=== PATIENT | female | born 1950 | race Caucasian/White ===

== ENCOUNTER 2020-01-30 09:24 | Outpatient (CLI) | payer MEDICARE, OTHER, SELFPAY ==
--- NOTE | ~2020-01-30 | MM_ITS ---
EXAMINATION: MM screening eulogio BI w gricelda HISTORY: Screening mammogram TECHNIQUE: Craniocaudal and mediolateral oblique 3-D tomosynthesis images were obtained and synthetic 2-D images were generated. CAD analysis was submitted and interpreted. COMPARISON: 12/22/2018, 12/03/2017, 11/27/2016 bilateral digital screening mammogram examinations BREAST PARENCHYMAL COMPOSITION: The breasts are almost entirely fatty. FINDINGS: There is no evidence of suspicious mass, calcification, or architectural distortion to sugg est malignancy in either breast. There has been no suspicious interval change. IMPRESSION: 1. No mammographic evidence of malignancy. 2. Recommend routine screening mammography in one year. BI-RADS Category 1: Negative Reviewed, dictated and finalized at location A.
== END 2020-01-30 09:25 | disposition home or self-care (01) ==
PROVIDERS: PCP Family Medicine; Visit Provider Family Medicine
DX: Z12.31 Encounter for screening mammogram for malignant neoplasm of breast (principal)
CPT/HCPCS: 77063; 77067

== ENCOUNTER 2021-02-05 11:43 | Outpatient (CLI) | payer MEDICARE, OTHER, SELFPAY ==
--- NOTE | ~2021-02-05 | MM_ITS ---
EXAMINATION: MM screening eulogio BI w gricelda HISTORY: Screening TECHNIQUE: Craniocaudal and mediolateral oblique 3-D tomosynthesis images were obtained and synthetic 2-D images were generated. CAD analysis was submitted and interpreted. COMPARISON: No prior mammogram is available for comparison at this institution. BREAST PARENCHYMAL COMPOSITION: The breasts are almost entirely fatty. FINDINGS: There is no evidence of suspicious mass, calcification, or architectural distortion to sugg est malignancy in either breast. There has been no suspicious interval change. IMPRESSION: 1. No mammographic evidence of malignancy. 2. Recommend routine screening mammography in one year. BI-RADS Category 1: Negative Reviewed, dictated and finalized at location A.
== END 2021-02-05 11:44 | disposition home or self-care (01) ==
LOC: ANHIMG 11:46
PROVIDERS: PCP Family Medicine; Visit Provider Family Medicine
DX: Z12.31 Encounter for screening mammogram for malignant neoplasm of breast (principal)
CPT/HCPCS: 77063; 77067

== ENCOUNTER 2021-04-25 08:32 | Outpatient (CLI) | payer MEDICARE, OTHER, SELFPAY ==
--- NOTE | ~2021-04-25 | CT_ITS ---
EXAMINATION: CT lumbar spine wo con DATE: 04/25/2021 08:55 INDICATION: Low back pain. TECHNIQUE: Computed tomography (CT) of the lumbar spine was performed without intravenous contrast. A utomated exposure control and iterative reconstruction technique were employed. The dose-length produ ct was 1010.45 mGy-cm. COMPARISON: None FINDINGS: There is 3 mm anterolisthesis of L4 on L5. Vertebral body heights are normal. There is mild ly decreased disc height from L2-L3 through L4-L5. The following disc levels are specifically discuss ed: L1-L2: The disc is bulging. There is moderate bilateral facet joint osteoarthritis. There is mild desirae ateral neural foraminal stenosis. There is no central canal stenosis. L2-L3: The disc is bulging. There is severe bilateral facet joint osteoarthritis. There is mild bilat eral neural foraminal stenosis. There is mild central canal stenosis. L3-L4: The disc is bulging. There is severe bilateral facet joint osteoarthritis. There is mild right and moderate left neural foraminal stenosis. There is mild central canal stenosis. L4-L5: The disc is bulging. There is severe bilateral facet joint osteoarthritis. There is moderate b ilateral neural foraminal stenosis. There is mild central canal stenosis. L5-S1: The disc is bulging. There is severe bilateral facet joint osteoarthritis. There is mild bilat eral neural foraminal stenosis. There is mild central canal stenosis. IMPRESSION: 1. Moderate lumbar spondylosis. Reviewed, dictated and finalized at location A.
== END 2021-04-25 08:33 | disposition home or self-care (01) ==
PROVIDERS: PCP Family Medicine; Visit Provider Family Medicine
DX: M51.34 Other intervertebral disc degeneration, thoracic region (principal); M47.817 Spondylosis without myelopathy or radiculopathy, lumbosacral region; M48.07 Spinal stenosis, lumbosacral region; M89.9 Disorder of bone, unspecified
CPT/HCPCS: 72131

== ENCOUNTER 2022-04-16 09:13 | Outpatient (CLI) | payer MEDICARE, SELFPAY ==
--- NOTE | ~2022-04-16 | DEXA_ITS ---
Bone Density Report Name: FAUSTINO DELCID Age: 71 Sex: Female Ethnicity: White Date of : 1950 Indication: postmenopausal; screening for osteoporosis; prior fracture; hysterectomy; Referring Provider: CARLOS BRICENO Study: Bone densitometry was performed. Exam Date: April 16, 2022 Accession number: [id number] Bone Density: Region BMD T-score Z-score Classification AP Spine(L1-L4) 1.065 0.2 2.5 Normal Femoral Neck (Left) 0.636 -1.9 0.1 Osteopenia Total Hip (Left) 0.883 -0.5 1.2 Normal World Health Organization criteria for BMD impression classify patients as: Normal (T-score at or above -1.0), Osteopenia (T-score between -1.0 and -2.5), or Osteoporosis (T-score at or below -2.5). 10-year Fracture Risk: FRAX not reported because: Prior hip or vertebral fracture Clinical Information Provided by Patient: Have had a previous hip or vertebral fracture Has had a low trauma fracture Has the following medical conditions: Hysterectomy Patient maximum height was 64.5 Menopause Age: 28 No regular weight bearing exercise Drinks caffeinated beverages Onset of menses at age 9 Number of children 1 Impression: The patient has low bone mass, based on the Left Femoral Neck T-score. The patient has risk factors, including: previous fracture. Discussion: INCREASED RISK OF FRACTURE DUE TO HISTORY OF FRACTURE. The patient's previous fracture puts the patient at high risk of a future fracture. In untreated patients, the risk of osteoporotic fracture increases approximately two-fold for each 1.0 SD decrease in T-score. Low bone density is not the only risk factor for fracture; also consider factors such as patient's age, frailty or poor health, risk of falling, risk of injury, previous osteoporotic fracture, family history of osteoporosis, cigarette smoking, low body weight, etc. Not everyone with a low trauma fracture has osteoporosis; osteomalacia and other metabolic bone disorders should also be considered. Patients who have osteoporosis should be evaluated for specific diseases and conditions (secondary causes) that may cause or contribute to bone loss and fracture risk. National Osteoporosis Foundation (NOF) recommends pharmacologic intervention for patients with a prior hip or vertebral fracture regardless of BMD T-score. The patient should follow a healthful lifestyle (good nutrition with adequate calcium and vitamin D, and appropriate weight-bearing exercise). Follow-Up: Consider a repeat BMD and Vertebral Fracture Assessment (VFA) exam in 2 years or sooner if medically necessary, to reassess this patient's status. Reported by: YURIY on 04/16/2022 9:44:00 AM. Reviewed, dictated and finalized at location ACamille KELLEY
--- NOTE | ~2022-04-16 | MM_ITS ---
EXAMINATION: MM screening eulogio BI w gricelda HISTORY: Screening TECHNIQUE: Craniocaudal and mediolateral oblique 3-D tomosynthesis images were obtained and synthetic 2-D images were generated. CAD analysis was submitted and interpreted. COMPARISON: Comparison to multiple prior studies sequentially, with oldest reviewed study dated 11/21. BREAST PARENCHYMAL COMPOSITION: The breasts are almost entirely fatty. FINDINGS: There is no evidence of suspicious mass, calcification, or architectural distortion to sugg est malignancy in either breast. There has been no suspicious interval change. IMPRESSION: 1. No mammographic evidence of malignancy. 2. Recommend routine screening mammography in one year. BI-RADS Category 1: Negative Reviewed, dictated and finalized at location A.
== END 2022-04-16 09:14 | disposition home or self-care (01) ==
LOC: ANHIMG 09:15
PROVIDERS: PCP Family Medicine; Visit Provider Family Medicine
DX: Z12.31 Encounter for screening mammogram for malignant neoplasm of breast (principal); Z78.0 Asymptomatic menopausal state; M85.88 Other specified disorders of bone density and structure, other site
CPT/HCPCS: 77063; 77067; 77080

== ENCOUNTER 2023-08-11 09:43 | Outpatient (CLI) | payer MEDICARE, SELFPAY ==
--- NOTE | ~2023-08-11 | MM_ITS ---
EXAMINATION: MM screening eulogio BI w gricelda HISTORY: Screening mammogram TECHNIQUE: Craniocaudal and mediolateral oblique 3-D tomosynthesis images were obtained and synthetic 2-D images were generated. CAD analysis was submitted and interpreted. COMPARISON: 04/16/2022, 02/2021, 01/30/2020 bilateral screening mammogram examinations BREAST PARENCHYMAL COMPOSITION: The breasts are almost entirely fatty. FINDINGS: There is no evidence of suspicious mass, calcification, or architectural distortion to sugg est malignancy in either breast. There has been no suspicious interval change. IMPRESSION: 1. No mammographic evidence of malignancy. 2. Recommend routine screening mammography in one year. BI-RADS Category 1: Negative Reviewed, dictated and finalized at location A. 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
== END 2023-08-11 09:44 | disposition home or self-care (01) ==
LOC: ANHIMG 09:46
PROVIDERS: PCP Family Medicine; Visit Provider Family Medicine
DX: Z12.31 Encounter for screening mammogram for malignant neoplasm of breast (principal)
CPT/HCPCS: 77063; 77067

== ENCOUNTER 2023-08-31 11:53 | Outpatient (CLI) | payer MEDICARE, SELFPAY ==
[2023-08-31 12:17] LABS: Basophils Absolute Auto 0.1 K/mm3 (0.0-0.1); Basophils Percent Auto 0.9 % (0.2-1.2); Eosinophils Absolute Auto 0.7 K/mm3 (0-0.3); Eosinophils Percent Auto 5.7 % (0-4.4); Hematocrit 40.6 % (37.0-47.0); Hemoglobin 12.9 g/dL (12.0-15.0); Immature Granulocyte Absolute 0.01 K/mm3 (0.00-0.031); Immature Granulocyte Percent A 0.1 % (0-0.5); Lymphocytes Absolute Auto 2.44 K/mm3 (0.9-3.2); Lymphocytes Percent Auto 20.2 % (18.3-44.2); Mean Corpuscular HGB Conc 31.8 g/dl (32-36); Mean Corpuscular Hemoglobin 30.4 pg (26-34); Mean Corpuscular Volume 95.5 fl (80-100); Mean Platelet Volume 9.2 fl (7.4-10.4); Monocytes Absolute Auto 0.8 K/mm3 (0.1-0.6); Monocytes Percent Auto 6.3 % (2.6-8.5); Neutrophils Absolute Auto 8.1 K/mm3 (1.3-6.7); Neutrophils Percent Auto 66.8 % (45.5-73.1); Platelet Count Result 401 k/mm3 (150-375); Red Blood Count 4.25 M/mm3 (4.2-5.4); Red Cell Distribution Width 12.7 % (11.5-14.5); White Blood Count 12.1 K/mm3 (4.5-10.0)
[2023-08-31 13:00] LABS: Erythrocyte Sedimentation Rate 18 mm/hr (0-20)
[2023-08-31 14:07] LABS: Iron 53 ug/dL (37-170)
[2023-08-31 14:11] LABS: Alanine Aminotransferase 14 U/L (6-35); Albumin Level 4.2 g/dL (3.5-5.1); Alkaline Phosphatase 92 U/L (38-126); Anion Gap 4 mmol/L (8-16); Aspartate Amino Transferase 24 U/L (14-36); Bilirubin,Total 0.7 mg/dL (0.2-1.3); Blood Urea Nitrogen 26 mg/dL (7-17); Calcium 9.6 mg/dL (8.4-10.2); Carbon Dioxide 30 mmol/L (22-30); Chloride 100 mmol/L (98-107); Estimated Glomerular Filt Rate > 60; Glucose 128 mg/dL (65-110); Potassium 4.4 mmol/L (3.4-5.0); Sodium 134 mmol/L (137-145)
[2023-08-31 14:18] LABS: Percent Iron Saturation 15 % (20-50)
[2023-09-06 11:59] LABS: Block/Specimen ID Not Given; CALR Exon 9 Mutation Not Detected (Not Detected); CSF3R Exon 14/17 Mutation Not Detected (Not Detected); JAK2 Exon 12 Mutation Not Detected (Not Detected); JAK2 V617F Mutation Not Detected (Not Detected); MPL Exon 10 Mutation Not Detected (Not Detected); Specimen Source Blood
[2023-09-07 13:57] LABS: Soluble Transferrin Receptor 1.07 mg/L (0.76-1.76)
== END 2023-08-31 11:54 | disposition home or self-care (01) ==
PROVIDERS: Nurse Practitioner Family; PCP Family Medicine; Visit Provider Internal Medicine Hematology & Oncology
DX: D75.839 Thrombocytosis, unspecified (principal); D50.9 Iron deficiency anemia, unspecified; D47.3 Essential (hemorrhagic) thrombocythemia
CPT/HCPCS: 36415; 80053; 81219; 81270; 81279; 81339; 81479; 82728; 83540; 83550; 84238; 85025; 85652; 86140

== ENCOUNTER 2023-12-09 14:53 | Outpatient (CLI) | payer MEDICARE, OTHER, SELFPAY ==
--- NOTE | ~2023-12-09 | XR_ITS ---
EXAMINATION: XR chest 2V 12/09/2023 15:20 INDICATION: Dyspnea with cough PROCEDURE: 2 view chest COMPARISON: No prior studies for comparison. FINDINGS: The lungs are clear. The cardiomediastinal silhouette is within normal limits. There are no pleural effusions. There is no pneumothorax suspected. IMPRESSION: 1: NO ACUTE CARDIOPULMONARY DISEASE. Reviewed, dictated and finalized at location B.
== END 2023-12-09 14:54 ==
PROVIDERS: PCP Family Medicine; Visit Provider Family Medicine
DX: R05.9 Cough, unspecified (principal); R06.00 Dyspnea, unspecified
CPT/HCPCS: 71046

== ENCOUNTER 2024-09-01 10:23 | Outpatient (CLI) | payer MEDICARE, SELFPAY ==
[2024-09-01 10:51] LABS: Basophils Absolute Auto 0.1 K/mm3 (0.0-0.1); Basophils Percent Auto 1.1 % (0.2-1.2); Eosinophils Absolute Auto 0.8 K/mm3 (0-0.3); Eosinophils Percent Auto 7.3 % (0-4.4); Hematocrit 43.6 % (37.0-47.0); Hemoglobin 14.1 g/dL (12.0-15.0); Immature Granulocyte Absolute 0.04 K/mm3 (0.00-0.031); Immature Granulocyte Percent A 0.4 % (0-0.5); Lymphocytes Absolute Auto 2.11 K/mm3 (0.9-3.2); Lymphocytes Percent Auto 20.5 % (18.3-44.2); Mean Corpuscular HGB Conc 32.3 g/dl (32-36); Mean Corpuscular Hemoglobin 30.1 pg (26-34); Mean Platelet Volume 9.2 fl (7.4-10.4); Monocytes Absolute Auto 0.8 K/mm3 (0.1-0.6); Neutrophils Absolute Auto 6.5 K/mm3 (1.3-6.7); Neutrophils Percent Auto 62.7 % (45.5-73.1); Platelet Count Result 396 k/mm3 (150-375); Red Blood Count 4.69 M/mm3 (4.2-5.4); Red Cell Distribution Width 12.5 % (11.5-14.5); White Blood Count 10.3 K/mm3 (4.5-10.0)
[2024-09-01 10:56] LABS: Blood Urea Nitrogen 18 mg/dL (8-26); Carbon Dioxide 29 mmol/L (22-30); Chloride 100 mmol/L (98-109); Estimated Glomerular Filt Rate > 60; Glucose 124 mg/dL (70-105); Potassium 4.1 mmol/L (3.5-4.9); Sodium 139 mmol/L (138-146)
[2024-09-01 11:37] LABS: Iron 78 ug/dL (37-170)
[2024-09-01 11:48] LABS: Percent Iron Saturation 23 % (20-50)
== END 2024-09-01 10:24 | disposition home or self-care (01) ==
LOC: ANHLAB 10:24
PROVIDERS: PCP Family Medicine; Visit Provider Internal Medicine Hematology & Oncology
DX: D50.9 Iron deficiency anemia, unspecified (principal)
CPT/HCPCS: 36415; 80047; 82728; 83540; 83550; 85025

== ENCOUNTER 2024-09-13 08:36 | Outpatient (CLI) | payer MEDICARE, OTHER, SELFPAY ==
--- OUTSIDE RECORDS SUMMARY | 2024-09-13 08:57 | XMS_ITS | Clinical Summary ---
Author Organization [facility] [address] Address [address] [place] [address] Care Team Providers Care Shank Archer Name Role Phone Radha Soto Primary Care Provider + Allergies Active Allergy Reactions Criticality Noted Date Comments Sulfa (Sulfonamide Antibiotics) Rash Low 08/06 Medications simvastatin (ZOCOR) 10 mg tablet Take 10 mg by mouth daily with supper. Active CALCIUM CARBONATE-VITAMI N D3 ORAL Take 50 mg by mouth. Active ferrous gluconate 324 mg (38 mg iron) tablet Take 27 mg by mouth daily. Active vitamin A-vitamin C-vitamin E (OCUVITE) Tablet Take 1 Tablet by mouth daily. Active zinc gluconate 50 mg Tablet Take by mouth. Active aspirin (ECOTRIN EC) 81 mg Tablet, Delayed Release (E.C.) Take 81 mg by mouth daily. Active Active Problems No known active problems Encounters Date Type Department Care Team Description 09/09/2024 External Device Data STL ABSTRACTION Provider, Abstract 09/08/2024 External Device Data STL ABSTRACTION Provider, Abstract 09/06/2024 3:30 PM [employer] Telephone Check Up [facility] - [place] [address] [place] [address] Slick Alicea MD Iron deficiency anemia, unspecified iron deficiency anemia type (Primary Dx) 09/06/2024 External Device Data STL ABSTRACTION Provider, Abstract 09/06/2024 Orders Only [facility] - [place] [address] [place] [address] Slick Alicea MD 09/04/2024 Orders Only [facility] - [place] [address] [place] [address] Slick Alicea MD 08/23/2024 External Device Data STL ABSTRACTION Provider, Abstract 08/01/2024 External Device Data STL ABSTRACTION Provider, Abstract 07/26/2024 External Device Data STL ABSTRACTION Provider, Abstract 07/26/2024 External Device Data STL ABSTRACTION Provider, Abstract from Last 3 Months Family History Medical History Relation Name Comments Diabetes Brother Heart Disease Brother No Known Problems Child Heart Disease Mother Relation Name Status Comments Brother Child Alive Father Mother Social History Tobacco Use Types Packs/Day Years Used Date Smoking Tobacco: Never Smokeless Tobacco: Never Alcohol Use Standard Drinks/Week Comments Yes 0 (1 standard drink = 0.6 oz pur e alcohol) Socially Comments Unknown Sex and Gender Information Value Date Recorded Sex Assigned at Not on file Legal Sex Female 2:59 PM [employer] Gender Identity Not on file Sexual Orientation Not on file Last Filed Vital Signs Vital Sign Reading Time Taken Comments Blood Pressure 131/76 01/10/2024 10:51 AM CDT Pulse 88 01/10/2024 10:49 AM CDT Temperature 36.1 C (97 F) 01/10/2024 10:49 AM CDT Respiratory Rate 16 01/10/2024 10:49 AM CDT Oxygen Saturation 91% 01/10/2024 10:49 AM CDT Inhaled Oxygen Concentration - - Weight 88.5 kg (195 lb 3.2 oz) 01/10/2024 10:49 AM CDT Height 162.6 cm (5' 4 ) 08/31/2023 11:11 AM [employer] Body Mass Index 33.51 08/31/2023 11:11 AM [employer] Plan of Treatment Upcoming Encounters Date Type Department Care Team (Late st Contact Info) Description 03/19/2025 2:15 PM CDT Office Visit [facility] - [place] [address] [place] [address] Slick Alicea MD [address] [facility] [address] [place] [address] Health Maintenance Due Date Last Done Comments DTAP/TDAP/TD VACCINES (1 - Tdap) 11/05/1967 Traditional Medicare (ACO) A nnual Wellness Visit 11/05/1967 COLORECTAL SCREENING 1993 Colorectal Cancer Screening 1993 FIT-DNA Q 3 years 1993 FIT/FOBT Q 1 year 1993 Flex Sig/CT Colonography Q 5 years 1993 PNEUMOCOCCAL VACCINE 50+ YEA RS (1 of 1 - PCV) 1998 ZOSTER VACCINE (1 of 2) 1998 RSV VACCINE (60+ or ) (1 - 1-dose 75+ series) 11/05/2023 INFLUENZA VACCINE (#1) 2024 OSTEOPOROSIS SCREENING Completed 04/13/2017, 2016 Procedures Procedure Name Priority Date/Time Associated Diagnosis Comments BASIC METABOLIC PANEL Routine 09/01/2024 11:18 AM [employer] CBC WITH DIFFERENTIAL Routine 09/01/2024 11:10 AM [employer] IRON, TIBC, AND PERCENT SATURATION Routine 09/01/2024 10:08 AM [employer] from Last 3 Months Results * BASIC METABOLIC PANEL (09/01/2024 11:18 AM [employer]) Blood us Slick Alicea MD CHEMISTRY ORDERABLES Final Resu lt * CBC WITH DIFFERENTIAL (09/01/2024 11:10 AM [employer]) Blood us Slick Alicea MD HEMATOLOGY ORDERABLES Final Res ult * IRON, TIBC, AND PERCENT SATURATION (09/01/2024 10:08 AM [employer]) Blood us Slick Alicea MD CHEMISTRY ORDERABLES Final Resu lt from Last 3 Months Insurance MEDICARE PART A AND [facility] [id number] Care Teams Shank Archer Relationship Specialty Start Date End Date Radha Soto DO [facility] [facility] [place] [address] PCP - General Family Practice 01/10/24
--- OUTSIDE RECORDS SUMMARY | 2024-09-13 08:57 | XMS_ITS | Encounter Summary ---
Author Organization [facility] [email or web address] [facility] Address [address] [place] [address] Care Team Providers Care Model And Mold Maker Plaster Name Role Phone Radha Soto DO Primary Care Provider + Encounter Details Date Type Department Care Team (Late Contact Info) Description 09/06/2024 Orders Only [facility] [address] [place] [address] Slick Alicea MD [address] [place] [address] Social History Tobacco Use Types Packs/Day Years Used Date Smoking Tobacco: Never Smokeless Tobacco: Never Alcohol Use Standard Drinks/Week Comments Yes 0 (1 standard drink = 0.6 oz pur e alcohol) Socially Comments Unknown Sex and Gender Information Value Date Recorded Sex Assigned at Not on file Legal Sex Female 2:59 PM PATIENT APPOINTMENT COORDINATOR Gender Identity Not on file Sexual Orientation Not on file documented as of this encounter Plan of Treatment Upcoming Encounters Date Type Department Care Team (Late st Contact Info) Description 03/19/2025 2:15 PM CDT Office Visit [facility] [address] [place] [address] [place] [address] [place], [place] [address] [address] [place] [address] documented as of this encounter Procedures Procedure Name Priority Date/Time Associated Diagnosis Comments BASIC METABOLIC PANEL Routine 09/01/2024 11:18 AM PATIENT APPOINTMENT COORDINATOR CBC WITH DIFFERENTIAL Routine 09/01/2024 11:10 AM PATIENT APPOINTMENT COORDINATOR documented in this encounter Results * BASIC METABOLIC PANEL (09/01/2024 11:18 AM PATIENT APPOINTMENT COORDINATOR) Blood us Slick Alicea MD CHEMISTRY ORDERABLES Final Resu lt * CBC WITH DIFFERENTIAL (09/01/2024 11:10 AM PATIENT APPOINTMENT COORDINATOR) Blood us Slick Alicea MD HEMATOLOGY ORDERABLES Final Res ult documented in this encounter Visit Diagnoses Not on filedocumented in this encounter Care Teams Model And Mold Maker Plaster Relationship Specialty Start Date End Date Radha Soto DO [facility] [facility] [address] PCP - General Family Practice 01/10/24 documented as of this encounter
--- OUTSIDE RECORDS SUMMARY | 2024-09-13 08:57 | XMS_ITS | Referral Summary ---
Author Organization [facility] Address [address] [place] [address] Care Team Providers Care Inspector Health Care Facilities Name Role Phone Radha Soto Primary Care Provider + Jesse Longoria MD Unavailable [phone] Allergies Active Allergy Reactions Criticality Noted Date Comments Sulfa (Sulfonamide Antibiotics) Rash Medium 11/2018 Medications aspirin 81 mg enteric coated tablet Take 1 tablet (81 mg total) by mouth daily Active vitamin A-vitamin C-vit E-min tablet Take 1 tablet by mouth daily Active ferrous gluconate 324 mg (37.5 mg of elemental iron) tablet Take 54 mg by mouth daily Active simvastatin (ZOCOR) 10 mg tablet Take 1 tablet (10 mg total) by mouth daily Active zinc gluconate 50 mg tablet Take 1 tablet (50 mg total) by mouth daily Active CALCIUM CARBONATE-VITAM IN D3 ORAL Take 50 mg by mouth client resource specialist before breakfast Active ascorbic acid (vitamin C) 1,000 mg tablet Take 1 tablet (1,000 mg total) by mouth daily Active vitamin B complex capsule Take 1 capsule by mouth daily Active Active Problems No known active problems Social History Tobacco Use Types Packs/Day Years Used Date Smoking Tobacco: Former Smokeless Tobacco: Never Tobacco Cessation:Counseling Given: Yes Personal Safety Answer Date Recorded Getting School Help Needed Not on file 09/08 Comments No Sex and Gender Information Value Date Recorded Sex Assigned at Not on file Legal Sex Female 9:24 PM LOADER UNLOADER Gender Identity Not on file Sexual Orientation Not on file Last Filed Vital Signs Vital Sign Reading Time Taken Comments Blood Pressure 140/70 09/09/2023 1:27 PM LOADER UNLOADER Pulse 85 09/09/2023 1:27 PM LOADER UNLOADER Temperature 36.9 C (98.4 F) 09/09/2023 1:27 PM LOADER UNLOADER Respiratory Rate 24 09/09/2023 1:27 PM LOADER UNLOADER Oxygen Saturation 95% 09/09/2023 1:27 PM LOADER UNLOADER Inhaled Oxygen Concentration - - Weight 90.7 kg (200 lb) 09/09/2023 1:27 PM LOADER UNLOADER Height 162.6 cm (5' 4 ) 09/09/2023 1:27 PM LOADER UNLOADER Body Mass Index 34.33 09/09/2023 1:27 PM LOADER UNLOADER Plan of Treatment Not on file Procedures Procedure Name Priority Date/Time Associated Diagnosis Comments DEXA AXIAL SKELETON BONE DENSITY 1 OR MORE SITES Routine 04/13/2017 4:10 PM CDT from Last 3 Months or Most Recently Relevant to Health Maintenance Results * Dexa Axial Skeleton Bone Density 1 or 2 Site (04/13/2017 4:10 PM CDT) Anatomical Region Laterality Modality Body N/A Radiographic Laya ging 04/13/2017 4:10 PM CDT Narrative 04/13/2017 4:10 PM CDT DEXA Bone Density Axial Acc#: [id number] DATE OF EXAM: Apr 13 2017 EXAM: DEXA Bone Density Axial HISTORY: SCRN 66-year-old postmenopausal female who states history of hysterectomy as well as vitamin D therapy. FINDINGS: LUMBAR SPINE: Mean bone mineral content is 1.093 g/cm2. The T-score is 0.1. LEFT HIP: Mean bone mineral content is 0.898 g/cm2. The neck T-score is -1.9. The total T-score is -0.4. IMPRESSION: 1. NORMAL BONE MINERAL DENSITY OF THE LUMBAR SPINE. 2. OSTEOPENIA OF THE LEFT HIP. COMMENT: W.H.O. defines the T-score of between -1 and -2.5 as osteopenia, the level at which there may be an increased risk of developing osteoporosis and fractures in the future. Osteoporosis is defined as T-score lower than -2.5 (significantly increased risk of fracture due to osteoporosis). T-score is a comparison to peak bone mineral density of young adult reference population. Z-score is a comparison to bone mineral density of sex and age group population. Electronically signed by: Joaquin Almanzar M.D. Interpreting Physician: DR FATOU NORRIS M.D. Read on: Apr 13 2017 12:26P Transcribed by: [facility] On: Apr 13 2017 12:24P Approved Electronically by: MYRNA Ortiz, DR LAINEZ on: Apr 13 2017 12:24P Ordering DR: JOSE ANTONIO OSULLIVAN Attending DR: JOSE ANTONIO OSULLIVAN Attending: JOSE ANTONIO OSULLIVAN Requesting: JOSE ANTONIO OSULLIVAN Requesting Attending Attending ID: [id number] Requesting ID: [id number] Report To 1 ID: [id number] Report To 1 Name: FLORENTIN JOSE ANTONIO Report To 1 FAX: [phone] NextGen Order #: Procedure Note Miscellaneous, Not In File / Provider, MD Chasity - 04/13/2017 DEXA Bone Density Axial Acc#: [id number] DATE OF EXAM: Apr 13 2017 EXAM: DEXA Bone Density Axial HISTORY: SCRN 66-year-old postmenopausal female who states history of hysterectomy as well as vitamin D therapy. FINDINGS: LUMBAR SPINE: Mean bone mineral content is 1.093 g/cm2. The T-score is 0.1. LEFT HIP: Mean bone mineral content is 0.898 g/cm2. The neck T-score is -1.9. The total T-score is -0.4. IMPRESSION: 1. NORMAL BONE MINERAL DENSITY OF THE LUMBAR SPINE. 2. OSTEOPENIA OF THE LEFT HIP. COMMENT: W.H.O. defines the T-score of between -1 and -2.5 as osteopenia, the level at which there may be an increased risk of developing osteoporosis and fractures in the future. Osteoporosis is defined as T-score lower than -2.5 (significantly increased risk of fracture due to osteoporosis). T-score is a comparison to peak bone mineral density of young adult reference population. Z-score is a comparison to bone mineral density of sex and age group population. Electronically signed by: Joaquin Almanzar M.D. Interpreting Physician: DR FATOU NORRIS M.D. Read on: Apr 13 2017 12:26P Transcribed by: [facility] On: Apr 13 2017 12:24P Approved Electronically by: DR FATOU NORRIS M.D. on: Apr 13 2017 12:24P Ordering DR: JOSE ANTONIO OSULLIVAN Attending DR: JOSE ANTONIO OSULLIVAN Attending: JOSE ANTONIO OSULLIVAN Requesting: JOSE ANTONIO OSULLIVAN Requesting Attending Attending ID: [id number] Requesting ID: [id number] Report To 1 ID: [id number] Report To 1 Name: JOSE ANTONIO OSULLIVAN Report To 1 FAX: [phone] NextGen Order #: [facility] [place] DE IMG DXA PROCEDURES Final Result from Last 3 Months or Most Recently Relevant to Health Maintenance Insurance MEDICARE [employer] OPEN ACCESS MEDICARE [facility] OPEN ACCESS MEDICARE [facility] [place] [address] MEDICARE Care Teams Inspector Health Care Facilities Relationship Specialty Start Date End Date Radha Soto DO [facility] [address] [address] PCP - General Family Medicine 09/09/23 Jesse Longoria MD [address] [place] [address] Referring Physician Orthopedic Surgery 09/09/23
--- OUTSIDE RECORDS SUMMARY | 2024-09-13 08:57 | XMS_ITS | Clinical Summary ---
Author Organization [facility] al Address [address] [place] [address] Care Team Providers Care Aircraft Fuselage Framer Name Role Phone Radha Soto Primary Care Provider + Jesse Longoria MD Unavailable [phone] Allergies Active Allergy Reactions Criticality Noted [...] D3 ORAL Take 50 mg by mouth electroplating sales representative before breakfast Active ascorbic acid (vitamin C) 1,000 mg tablet Take 1 tablet (1,000 mg total) by mouth daily Active vitamin B complex capsule Take 1 capsule by mouth daily Active Active Problems No known active problems Surgical History Surgery Date Site/Laterality Comments COLONOSCOPY Medical History Medical History Date Comments Ulcerative colitis (HCC) Internal hemorrhoids Hypercholesterolemia Social History Tobacco Use Types Packs/Day Years Used Date Smoking Tobacco: Former Smokeless Tobacco: Never Tobacco Cessation:Counseling Given: Yes Personal Safety Answer Date Recorded Getting School Help Needed Not on file 09/08 Comments No Sex and Gender Information Value Date Recorded Sex Assigned at Not on file Legal Sex Female 9:24 PM FINANCIAL LEGAL ASSISTANT Gender Identity Not on file Sexual Orientation Not on file Obstetrics History Last Filed Vital Signs Vital Sign Reading Time Taken Comments Blood Pressure 140/70 09/09/2023 1:27 PM FINANCIAL LEGAL ASSISTANT Pulse 85 09/09/2023 1:27 PM FINANCIAL LEGAL ASSISTANT Temperature 36.9 C (98.4 F) 09/09/2023 1:27 PM FINANCIAL LEGAL ASSISTANT Respiratory Rate 24 09/09/2023 1:27 PM FINANCIAL LEGAL ASSISTANT Oxygen Saturation 95% 09/09/2023 1:27 PM FINANCIAL LEGAL ASSISTANT Inhaled Oxygen Concentration - - Weight 90.7 kg (200 lb) 09/09/2023 1:27 PM FINANCIAL LEGAL ASSISTANT Height 162.6 cm (5' 4 ) 09/09/2023 1:27 PM FINANCIAL LEGAL ASSISTANT Body Mass Index 34.33 09/09/2023 1:27 PM FINANCIAL LEGAL ASSISTANT Plan of Treatment Health Maintenance Due Date Last Done Comments Colon Cancer Screening-Colonoscopy 1950 Depression Screening 1948 Fall Risk Assessment 1948 Hepatitis C Screening 1948 DTaP/Tdap/Td Vaccine (1 - Tdap) 11/05/1959 Hepatitis B Screening 1966 Well Visit 65+ 2013 Osteoporosis Screening-Bone Density Scan 04/13/2019 04/13/2017 Covid-19 Vaccine (3 - 2023-2 5 season) 2024 09/13/2020, 08/23/2020 Influenza Vaccine (#1) 2024 , 03/05/2022, 03/28/2021, Additional history exists Pneumococcal vaccine 65+ Completed 03/12/2019, 04/04 Zoster Vaccine Completed 03/30/2022, 01/03, 10/12/2012 Procedures Procedure Name Priority Date/Time Associated Diagnosis [...] PM CDT DEXA Bone Density Axial Acc#: [id number] DATE OF EXAM: Apr 13 2017 EXAM: [...] on: Apr 13 2017 12:26P Transcribed by: MARK On: Apr 13 2017 12:24P Approved Electronically by: MYRNA Ortiz, DR LAINEZ on: Apr 13 2017 12:24P Ordering DR: JOSE ANTONIO LERMA Attending DR: JOSE ANTONIO LERMA Attending: JOSE ANTONIO LERMA Requesting: JOSE ANTONIO LERMA Requesting Attending Attending ID: [id number] Requesting ID: [id number] Report To 1 ID: [id number] Report To 1 Name: JOSE ANTONIO LERMA Report To 1 FAX: [phone] NextGen Order #: Procedure Note Miscellaneous, Not In File / Provider, MD Chasity - 04/13/2017 DEXA Bone Density Axial Acc#: [id number] DATE OF EXAM: Apr 13 2017 EXAM: [...] on: Apr 13 2017 12:26P Transcribed by: [facility] On: Apr 13 2017 12:24P Approved Electronically by: MYRNA Ortiz, DR LAINEZ on: Apr 13 2017 12:24P Ordering DR: JOSE ANTONIO LERMA Attending DR: JOSE ANTONIO LERMA Attending: JOSE ANTONIO LERMA Requesting: JOSE ANTONIO LERMA Requesting Attending Attending ID: [id number] Requesting ID: [id number] Report To 1 ID: [id number] Report To 1 Name: JOSE ANTONIO LERMA Report To 1 FAX: [phone] NextGen Order #: [facility] Jose Lerma MD IM DXA PROCEDURES Final Result from Last 3 Months or Most Recently Relevant to Health Maintenance Insurance MEDICARE Member Subscriber Plan / Payer (Ef fective 2013-Present) Name:Gloria Nunez Member ID:[id number] Relation to Subscriber:Self Name:Gloria Nunez Subscriber ID:[id number] Payer ID:[id number] Group ID:Not on file Type:MEDICARE TRADITIONAL Address: [address] [address] [place] [address] [employer] OPEN ACCESS MEDICARE [employer] OPEN ACCESS MEDICARE [facility] SUPPLEMENT MEDICARE Care Teams Aircraft Fuselage Framer Relationship Specialty Start Date End Date Radha Soto DO [address] [place] [address] DR COLUNGA [address] [place] [address] PCP - General Family Medicine 09/09/23 Jesse Longoria MD [facility] [place] [address] Referring Physician Orthopedic Surgery 09/09/23
--- OUTSIDE RECORDS SUMMARY | 2024-09-13 08:57 | XMS_ITS | Continuity of Care Document ---
Author Organization [facility] Address [address] [place] [address] [address] [place] [address] Phone Care Team Providers Care Certified Welding Inspector Name Role Phone Chuy Salgado MD Unavailable Unavailable Procedures Procedure Date POSTOP FOLLOW-UP VISIT POSTOP FOLLOW-UP VISIT CATARACT SURG W/IOL, 1 STAGE POSTOP FOLLOW-UP VISIT CATARACT SURG W/IOL, 1 STAGE OFFICE/OUTPATIENT VISIT, [facility] OPHTHALMIC BIOMETRY OPHTHALMIC BIOMETRY Advance Directives Directive Yes / No Effective Date File Name No Information Encounters Encounter Description Practice Location Reason(s) For Visit Diagnoses Date Provider Providers Copied on Encounter Ophthalmology [facility]ly [facility], 1928–[facility], [address] [place] [address], [id number], tel:[phone] OPH CONSULT ZAIRE PLUNKETT No Information 0 Naomi Chuy. [address] [place] [address], [facility] [address], [place], [address], [place]. tel:[phone] Referring Provider: Malik Staton MD, [address] [facility] [address], [place], [address]. tel:[phone] Ophthalmology [facility], 1930[facility], [address] [place] [address], [id number], tel:[phone] OPH CONSULT ZAIRE PLUNKETT No Information 0 Anomi Chuy. [address] [facility], [address], [place], [address], [place]. tel:[phone] Referring Provider: Malik Staton MD, [address], [place], [address]. tel:[phone] [facility], [address], [place], [place], [id number], [place] tel:[phone] [address] [place] [address] No Information 0 Naomi Chuy. [address] [facility], [address], [place], [address], [place]. tel:[phone] Referring Provider: Malik Staton MD, [address], [place], [address]. tel:[phone] [facility], [address], [place], [place], [id number], [place] tel:[phone] OPH CONSULT ZAIRE PLUNKETT No Information 0 Naomi Chuy. [address] [facility], [address], [place], [address], [place]. tel:[phone] Referring Provider: Malik Staton MD, [address], [place], [address]. tel:[phone] [facility], [address], [place], [place], [id number], [place] tel:[phone] [address] [place] [address] [facility] [place] No Information 0 Naomi Chuy. [address] [facility], [address], [place], [address], [place]. tel:[phone] Referring Provider: Malik Staton MD, [address], [place], [address]. tel:[phone] OFFICE/OUTPA TIENT VISIT, [facility], [address], [place], [place], [address], [place] tel:[phone] OPH CONSULT ZAIRE PLUNKETT No Information 0 Naomi Chuy. [address] [facility], [address], [place], [address], [place]. tel:[phone] Referring Provider: Salvatore Marcial MD P, [address], [place], [place], [id number]. tel:[phone] Family History Family Member Type Diagnosis Age At Onset No Information Payers Payer name Insurance type Covered democrat ID Authoriza tion(s) No Information Social History Type Description Quantity Date Captured Comments Sex Female Smoking Status No Information Chief Complaint And Reason For Visit No Information Plan Of Treatment Date Type Action Status No Information History Of Present Illness Encounter Date Complaint History Of Prese nt Illness No Information Instructions Date Instruction Additional Infor mation No Information Assessments Type Assessment Date No Information
--- OUTSIDE RECORDS SUMMARY | 2024-09-13 08:57 | XMS_ITS | Encounter Summary ---
Author Organization [facility] Address [address] [place] [address] Care Team Providers Care Mortgage Analyst Name Role Phone Radha Soto DO Primary Care Provider + Encounter Details Date Type Department Care Team (Late st Contact Info) Description 09/09/2024 External Device Data STL ABSTRACTION Provider, Abstract NO ADDRESS ON FILE Social History Tobacco Use Types Packs/Day Years Used Date Smoking Tobacco: Never Smokeless Tobacco: Never Alcohol Use Standard Drinks/Week Comments Yes 0 (1 standard drink = 0.6 oz pur e alcohol) Socially Comments Unknown Sex and Gender Information Value Date Recorded Sex Assigned at Not on file Legal Sex Female 2:59 PM TUG CAPTAIN Gender Identity Not on file Sexual Orientation Not on file documented as of this encounter Plan of Treatment Upcoming Encounters Date Type Department Care Team (Late st Contact Info) Description 03/19/2025 2:15 PM CDT Office Visit [facility] Oncology and Hematology - [place] [address] [facility] [address] [place] [address] Slick Alicea MD [address] [facility] [address] [place] [address] documented as of this encounter Visit Diagnoses Not on filedocumented in this encounter Care Teams Mortgage Analyst Relationship Specialty Start Date End Date Radha Soto DO [address] [place] [address] [place] [address] PCP - General Family Practice 01/10/24 documented as of this encounter
[2024-09-13 13:47] LABS: Uric Acid 4.9 mg/dL (2.5-7.5)
== END 2024-09-13 08:37 | disposition home or self-care (01) ==
PROVIDERS: PCP Family Medicine; Visit Provider Family Medicine
DX: M10.9 Gout, unspecified (principal)
CPT/HCPCS: 36415; 84550

== ENCOUNTER 2024-10-12 14:51 | Outpatient (CLI) | payer MEDICARE, SELFPAY ==
--- NOTE | ~2024-10-12 | MM_ITS ---
EXAMINATION: MM screening eulogio BI w gricelda HISTORY: Screening TECHNIQUE: Craniocaudal and mediolateral oblique 3-D tomosynthesis images were obtained and synthetic 2-D images were generated. CAD analysis was submitted and interpreted. COMPARISON: Comparison to multiple prior studies sequentially, with oldest reviewed study dated 07/2017. BREAST PARENCHYMAL COMPOSITION: Not Dense: The breasts are almost entirely fatty. FINDINGS: There is no evidence of suspicious mass, calcification, or architectural distortion to sugg est malignancy in either breast. There has been no suspicious interval change. IMPRESSION: 1. No mammographic evidence of malignancy. 2. Recommend routine screening mammography in one year. BI-RADS Category 1: Negative Reviewed, dictated and finalized at location A.
--- OUTSIDE RECORDS SUMMARY | 2024-10-12 15:21 | XMS_ITS | Clinical Summary ---
Author Organization [facility] Address [address] [place] [address] Care Team Providers Care Strength And Conditioning Coach Name Role Phone Radha Soto Primary Care [...] Encounters Date Type Department Care Team Description 09/20/2024 External Device Data STL ABSTRACTION Provider, Abstract 09/09/2024 External Device Data STL ABSTRACTION Provider, Abstract 09/08/2024 External Device Data STL ABSTRACTION Provider, Abstract 09/06/2024 3:30 PM PRISM INSPECTOR Telephone Check Up [facility] - Ming [address] [place] [address] Slick Alicea MD Iron deficiency anemia, unspecified iron deficiency anemia type (Primary Dx) 09/06/2024 External Device Data STL ABSTRACTION Provider, Abstract 09/06/2024 Orders Only [facility] Ming [address] [place] [address] Slick Alicea MD 09/04/2024 Orders Only [facility] [address] [place] [address] Slick Alicea MD 08/23/2024 External [...] on file Legal Sex Female 2:59 PM PRISM INSPECTOR Gender Identity Not on file Sexual Orientation [...] cm (5' 4 ) 08/31/2023 11:11 AM PRISM INSPECTOR Body Mass Index 33.51 08/31/2023 11:11 AM PRISM INSPECTOR Plan of Treatment Upcoming Encounters Date Type Department Care Team (Late st Contact Info) Description 03/19/2025 2:15 PM CDT Office Visit [facility] - [address] [place] [address] Slick Alicea MD [address] [place] [address] Health Maintenance Due Date Last [...] BASIC METABOLIC PANEL Routine 09/01/2024 11:18 AM PRISM INSPECTOR CBC WITH DIFFERENTIAL Routine 09/01/2024 11:10 AM PRISM INSPECTOR IRON, TIBC, AND PERCENT SATURATION Routine 09/01/2024 10:08 AM PRISM INSPECTOR from Last 3 Months Results * BASIC METABOLIC PANEL (09/01/2024 11:18 AM PRISM INSPECTOR) Blood us Slick Alicea MD CHEMISTRY ORDERABLES Final Resu lt * CBC WITH DIFFERENTIAL (09/01/2024 11:10 AM PRISM INSPECTOR) Blood us Slick Alicea MD HEMATOLOGY ORDERABLES Final Res ult * IRON, TIBC, AND PERCENT SATURATION (09/01/2024 10:08 AM PRISM INSPECTOR) Blood us Slick Alicea MD CHEMISTRY ORDERABLES Final Resu lt from Last 3 Months Insurance MEDICARE PART A AND B [facility] [place] [id number] Care Teams Strength And Conditioning Coach Relationship Specialty Start Date End Date Radha Soto DO [facility] [facility] [place] [address] PCP - General Family Practice 01/10/24
--- OUTSIDE RECORDS SUMMARY | 2024-10-12 15:21 | XMS_ITS | Continuity of Care Document ---
Author Organization [facility] Address [address] [place] [address] [address] [place] [address] Phone Care Team Providers Care Emergency Department Manager Name Role Phone Chuy Salgado MD Unavailable Unavailable Procedures Procedure Date POSTOP FOLLOW-UP VISIT POSTOP FOLLOW-UP VISIT CATARACT SURG W/IOL, 1 STAGE POSTOP FOLLOW-UP VISIT CATARACT SURG W/IOL, 1 STAGE OFFICE/OUTPATIENT VISIT, [facility] OPHTHALMIC BIOMETRY OPHTHALMIC BIOMETRY Advance Directives Directive Yes / No Effective Date File Name No Information Encounters Encounter Description Practice Location Reason(s) For Visit Diagnoses Date Provider Providers Copied on Encounter [facility], [address] [place] [address], [id number], tel:[phone] OPH CONSULT ZAIRE PLUNKETT No Information 0 Naomi Chuy. [address] [place] [address], [facility] [address], [place], [address], [place]. tel:[phone] Referring Provider: Malik Staton MD, [address] [facility] [address], [place], [address]. tel:[phone] [facility], [address] [place] [address], [id number], tel:[phone] OPH CONSULT ZAIRE PLUNKETT No Information 0 Naomi Chuy. [address] [facility], [address], [place], [address], [place]. tel:[phone] Referring Provider: Malik Staton MD, [address] [facility] [address], [place], [address]. tel:[phone] [facility], [address], [place], [place], [id number], [place] tel:[phone] [address] [place] [address] No Information 0 Naomi Chuy. [address] [facility], [address], [place], [address], [place]. tel:[phone] Referring Provider: Malik Staton MD, [address], [place], [address]. tel:[phone] [facility], [address], [place], [place], [address], [place] tel:[phone] OPH CONSULT ZAIRE PLUNKETT No Information 0 Naomi Chuy. [address] [facility], [address], [place], [address], [place]. tel:[phone] Referring Provider: Malik Staton MD, [address], [place], [address]. tel:[phone] [facility], [address], [place], [place], [id number], [place] tel:[phone] [address] [place] [address] [facility] No Information 0 Naomi Chuy. [address] [facility], [address], [place], [address], [place]. tel:[phone] Referring Provider: Malik Staton MD, [address], [place], [address]. tel:[phone] OFFICE/OUTPA TIENT VISIT, [facility], [address], [place], [place], [address], [place] tel:[phone] OPH CONSULT ZAIRE PLUNKETT No Information 0 Naomi Chuy. [address] [facility], [address], [place], [address], [place]. tel:[phone] Referring Provider: Salvatore Marcial MD P, [address], [place], [address] . tel:[phone] Family History Family Member Type Diagnosis Age At Onset No Information Payers Payer name Insurance type Covered constitution party ID Authoriza tion(s) No Information Social History Type Description Quantity Date Captured Comments Sex Female Smoking Status No Information Chief Complaint And Reason For Visit No Information Reason For Referral Reason For Referral No Information History Of Present Illness Encounter Date Complaint History Of Prese nt Illness No Information Functional Status Date Functional Assessmen t No Information Instructions Date Instruction Additional Infor mation No Information Assessments Type Assessment Date No Information Patient Care Teams Name Effective Dates (start - stop) Status Members No Information
--- OUTSIDE RECORDS SUMMARY | 2024-10-12 15:21 | XMS_ITS | Clinical Summary ---
Author Organization [facility] al Address [address] [place] [address] Care Team Providers Care Tour Driver Name Role Phone Radha Soto Primary Care Provider + Jesse Longoria MD Unavailable [phone] Allergies Active Allergy Reactions Criticality Noted [...] D3 ORAL Take 50 mg by mouth emt i/99 before breakfast Active ascorbic acid (vitamin C) [...] on file Legal Sex Female 9:24 PM RIVET HEATER GAS Gender Identity Not on file Sexual Orientation Not on file Obstetrics History Last Filed Vital Signs Vital Sign Reading Time Taken Comments Blood Pressure 140/70 09/09/2023 1:27 PM RIVET HEATER GAS Pulse 85 09/09/2023 1:27 PM RIVET HEATER GAS Temperature 36.9 C (98.4 F) 09/09/2023 1:27 PM RIVET HEATER GAS Respiratory Rate 24 09/09/2023 1:27 PM RIVET HEATER GAS Oxygen Saturation 95% 09/09/2023 1:27 PM RIVET HEATER GAS Inhaled Oxygen Concentration - - Weight 90.7 kg (200 lb) 09/09/2023 1:27 PM RIVET HEATER GAS Height 162.6 cm (5' 4 ) 09/09/2023 1:27 PM RIVET HEATER GAS Body Mass Index 34.33 09/09/2023 1:27 PM RIVET HEATER GAS Plan of Treatment Health Maintenance Due Date Last Done Comments Colon Cancer Screening-Colonoscopy 1948 Depression Screening 1948 Fall Risk Assessment 1948 Hepatitis C Screening 1948 DTaP/Tdap/Td Vaccine (1 - Tdap) 11/05/1959 Hepatitis B Screening 1966 Well Visit 65+ 2013 Osteoporosis Screening-Bone Density Scan 04/13/2019 04/13/2017 Covid-19 Vaccine (3 - 2023-2 5 season) 2024 09/13/2020, 08/23/2020 Influenza Vaccine (Season Ended) 2025 03/09/2023, 03/05/2022, 03/28/2021, Additional history exists Pneumococcal vaccine [...] PM CDT DEXA Bone Density Axial Acc#: [id number] DATE OF EXAM: Apr 13 2017 EXAM: [...] JOSE ANTONIO LERMA Requesting Attending Attending ID: [id number] Requesting ID: [id number] Report To 1 ID: [id number] Report To 1 Name: JOSE ANTONIO LERMA Report To 1 FAX: [phone] NextGen Order #: Procedure Note Miscellaneous, Not In File / Provider, MD Chasity - 04/13/2017 DEXA Bone Density Axial Acc#: [id number] DATE OF EXAM: Apr 13 2017 EXAM: [...] on: Apr 13 2017 12:26P Transcribed by: [facility] On: Apr 13 2017 12:24P Approved Electronically by: MYRNA Ortiz, DR LAINEZ on: Apr 13 2017 12:24P Ordering DR: JOSE ANTONIO LERMA Attending DR: JOSE ANTONIO LERMA Attending: JOSE ANTONIO LERMA Requesting: JOSE ANTONIO LERMA Requesting Attending Attending ID: [id number] Requesting ID: [id number] Report To 1 ID: [id number] Report To 1 Name: JOSE ANTONIO LERMA Report To 1 FAX: [phone] NextGen Order #: [facility] Jose Lerma MD IM DXA PROCEDURES Final Result from Last 3 Months or Most Recently Relevant to Health Maintenance Insurance MEDICARE [employer] OPEN ACCESS MEDICARE [employer] OPEN ACCESS MEDICARE [facility] SUPPLEMENT MEDICARE Care Teams Tour Driver Relationship Specialty Start Date End Date Radha Soto DO [address] [place] [address] DR COLUNGA [address] [place] [address] PCP - General Family Medicine 09/09/23 Jesse Longoria MD [facility] [place] [address] Referring Physician Orthopedic Surgery 09/09/23
--- OUTSIDE RECORDS SUMMARY | 2024-10-12 15:21 | XMS_ITS | Referral Summary ---
Author Organization [facility] al Address [address] [place] [address] Care Team Providers Care Preprint Analyst Name Role Phone Radha Soto Primary Care Provider + Jesse Longoria MD Unavailable [phone] Allergies Active Allergy Reactions Criticality Noted [...] D3 ORAL Take 50 mg by mouth applications processor before breakfast Active ascorbic acid (vitamin C) [...] on file Legal Sex Female 9:24 PM COMMUNITY CHEST OFFICER Gender Identity Not on file Sexual Orientation Not on file Last Filed Vital Signs Vital Sign Reading Time Taken Comments Blood Pressure 140/70 09/09/2023 1:27 PM COMMUNITY CHEST OFFICER Pulse 85 09/09/2023 1:27 PM COMMUNITY CHEST OFFICER Temperature 36.9 C (98.4 F) 09/09/2023 1:27 PM COMMUNITY CHEST OFFICER Respiratory Rate 24 09/09/2023 1:27 PM COMMUNITY CHEST OFFICER Oxygen Saturation 95% 09/09/2023 1:27 PM COMMUNITY CHEST OFFICER Inhaled Oxygen Concentration - - Weight 90.7 kg (200 lb) 09/09/2023 1:27 PM COMMUNITY CHEST OFFICER Height 162.6 cm (5' 4 ) 09/09/2023 1:27 PM COMMUNITY CHEST OFFICER Body Mass Index 34.33 09/09/2023 1:27 PM COMMUNITY CHEST OFFICER Plan of Treatment Not on file Procedures [...] PM CDT DEXA Bone Density Axial Acc#: [id number] DATE OF EXAM: Apr 13 2017 EXAM: [...] on: Apr 13 2017 12:26P Transcribed by: [facility] On: Apr 13 2017 12:24P Approved Electronically by: MYRNA Ortiz, DR LAINEZ on: Apr 13 2017 12:24P Ordering DR: JOSE ANTONIO OSULLIVAN Attending DR: JOSE ANTONIO OSULLIVAN Attending: JOSE ANTONIO OSULLIVAN Requesting: JOSE ANTONIO OSULLIVAN Requesting Attending Attending ID: [id number] Requesting ID: [id number] Report To 1 ID: [id number] Report To 1 Name: FLORENTIN JOSE ANTONIO Report To 1 FAX: [phone] NextGen Order #: Procedure Note Miscellaneous, Not In File / Provider, MD Chasity - 04/13/2017 DEXA Bone Density Axial Acc#: [id number] DATE OF EXAM: Apr 13 2017 EXAM: [...] on: Apr 13 2017 12:26P Transcribed by: [facility] On: Apr 13 2017 12:24P Approved Electronically by: DR FATOU NORRIS M.D. on: Apr 13 2017 12:24P Ordering DR: JOSE ANTONIO OSULLIVAN Attending DR: JOSE ANTONIO OSULLIVAN Attending: JOSE ANTONIO OSULLIVAN Requesting: JOSE ANTONIO OSULLIVAN Requesting Attending Attending ID: [id number] Requesting ID: [id number] Report To 1 ID: [id number] Report To 1 Name: JOSE ANTONIO OSULLIVAN Report To 1 FAX: [phone] NextGen Order #: [facility] Florentin DE IMG DXA PROCEDURES Final Result from Last 3 Months or Most Recently Relevant to Health Maintenance Insurance MEDICARE [employer] OPEN ACCESS MEDICARE [facility] OPEN ACCESS MEDICARE [facility] [place] [address] MEDICARE Care Teams Preprint Analyst Relationship Specialty Start Date End Date Radha Soto DO [facility] [address] [address] PCP - General Family Medicine 09/09/23 Jesse Longoria MD [address] [place] [address] Referring Physician Orthopedic Surgery 09/09/23
== END 2024-10-12 14:52 | disposition home or self-care (01) ==
PROVIDERS: PCP Family Medicine; Visit Provider Nurse Practitioner
DX: Z12.31 Encounter for screening mammogram for malignant neoplasm of breast (principal)
CPT/HCPCS: 77063; 77067

== ENCOUNTER 2024-12-11 13:39 | Outpatient (CLI) | payer MEDICARE, SELFPAY ==
--- NOTE | ~2024-12-11 | DEXA_ITS ---
Bone Density Report Name: FAUSTINO DELCID Age: 74 Sex: Female Ethnicity: White Date of : 1950 Indication: postmenopausal; screening for osteoporosis; prior fracture; hysterectomy; Referring Provider: ENRIQUE QUEEN Study: Bone densitometry was performed. Exam Date: December 11, 2024 Accession number: [id number] Bone Density: Region BMD T-score Z-score Classification AP Spine(L1-L4) 1.099 0.5 2.9 Normal Femoral Neck (Left) 0.628 -2.0 0.1 Osteopenia Total Hip (Left) 0.926 -0.1 1.7 Normal World Health Organization criteria for BMD impression classify patients as: Normal (T-score at or above -1.0), Osteopenia (T-score between -1.0 and -2.5), or Osteoporosis (T-score at or below -2.5). 10-year Fracture Risk: FRAX not reported because: Prior hip or vertebral fracture Previous Exams: Region Exam Age BMD T-score BMD Change BMD Change Date g/cm2 vs Baseline vs Previous AP Spine (L1-L4) 12/11/2024 74 1.099 0.5 0.034 (3.2%)* 0.034 (3.2%)* 04/16/2022 71 1.065 0.2 Total Hip(Left) 12/11/2024 74 0.926 -0.1 0.043 (4.8%)* 0.043 (4.8%)* 04/16/2022 71 0.883 -0.5 *Denotes significance at 95% confidence level, LSC for AP Spine = 0.022 g/cm2, LSC for Total Hip = 0.027 g/cm2 Clinical Information Provided by Patient: Have had a previous hip or vertebral fracture Has had a low trauma fracture Has the following medical conditions: Hysterectomy Patient maximum height was 64.5 Menopause Age: 28 No regular weight bearing exercise Drinks caffeinated beverages Onset of menses at age 9 Number of children 1 Impression: The patient has low bone mass, based on the Left Femoral Neck T-score. The patient has risk factors, including: previous fracture. No significant bone loss was observed. Discussion: INCREASED RISK OF FRACTURE DUE TO HISTORY OF FRACTURE. The patient's previous fracture puts the patient at high risk of a future fracture. In untreated patients, the risk of osteoporotic fracture increases approximately two-fold for each 1.0 SD decrease in T-score. Low bone density is not the only risk factor for fracture; also consider factors such as patient's age, frailty or poor health, risk of falling, risk of injury, previous osteoporotic fracture, family history of osteoporosis, cigarette smoking, low body weight, etc. Not everyone with a low trauma fracture has osteoporosis; osteomalacia and other metabolic bone disorders should also be considered. Patients who have osteoporosis should be evaluated for specific diseases and conditions (secondary causes) that may cause or contribute to bone loss and fracture risk. National Osteoporosis Foundation (NOF) recommends pharmacologic intervention for patients with a prior hip or vertebral fracture regardless of BMD T-score. The patient should follow a healthful lifestyle (good nutrition with adequate calcium and vitamin D, and appropriate weight-bearing exercise). Follow-Up: Consider a repeat BMD and Vertebral Fracture Assessment (VFA) exam in 2 years or sooner if medically necessary, to reassess this patient's status. Reported by: YURIY on 12/11/2024 2:22:00 PM. Reviewed, dictated and finalized at location A.
--- OUTSIDE RECORDS SUMMARY | 2024-12-11 14:52 | XMS_ITS | Continuity of Care Document ---
Author Organization [facility] Address [id number] [place] [address] [address] [place] [address] Phone Care Team Providers Care Integrity Specialist Name Role Phone Chuy Salgado MD Unavailable Unavailable Procedures Procedure Date POSTOP FOLLOW-UP VISIT POSTOP FOLLOW-UP VISIT CATARACT SURG W/IOL, 1 STAGE POSTOP FOLLOW-UP VISIT CATARACT SURG W/IOL, 1 STAGE OFFICE/OUTPATIENT VISIT, [facility] OPHTHALMIC BIOMETRY OPHTHALMIC BIOMETRY Advance Directives Directive Yes / No Effective Date File Name No Information Encounters Encounter Description Practice Location Reason(s) For Visit Diagnoses Date Provider Providers Copied on Encounter [facility], [address] [place] [address], [id number], tel:[phone] OPH CONSULT ZAIRE PLUNKETT No Information 0 Naomi Chuy. [address] [facility], [facility] [address], [place], [id number], [place]. tel:[phone] Referring Provider: Malik Staton MD, [address], [place], [address]. tel:[phone] [facility], [address] [place] [address], [id number], tel:[phone] OPH CONSULT ZAIRE PLUNKETT No Information 0 Naomi Chuy. [address] [facility], [address] [facility], [place], [place], [id number], [place]. tel:[phone] Referring Provider: Malik Staton MD, [address], [place], [address]. tel:[phone] [facility], [address] [facility] [address], [place], [place], [id number], [place] tel:[phone] [facility] [place] No Information 0 Naomi Chuy. [address] [facility], [address], [place], [place], [id number], [place]. tel:[phone] Referring Provider: Malik Staton MD, [address], [place], [address]. tel:[phone] [facility], [address] [facility] [address], [place], [place], [id number], [place] tel:[phone] OPH CONSULT ZAIRE PLUNKETT No Information 0 Naomi Chuy. [address] [facility], [address], [place], [place], [id number], [place]. tel:[phone] Referring Provider: Malik Staton MD, [address], [place], [address]. tel:[phone] [facility], [address] [facility] [address], [place], [place], [id number], [place] tel:[phone] [address] [place] [address] [facility] [facility] No Information 0 Naomi Chuy. [address] [facility], [address], [place], [place], [id number], [place]. tel:[phone] Referring Provider: Malik Staton MD, [address], [place], [address]. tel:[phone] OFFICE/OUTPA TIENT VISIT, [facility], [address] [facility] [address], [place], [place], [id number], [place] tel:[phone] OPH CONSULT ZAIRE PLUNKETT No Information 0 Naomi Chuy. [address] [facility], [address], [place], [place], [id number], [place]. tel:[phone] Referring Provider: Salvatore Marcial MD P, [address], [place], [address] . tel:[phone] Family History Family Member Type Diagnosis Age At Onset No Information Payers Payer name Insurance type Covered libertarian ID Authoriza tion(s) No Information Social History [...]
--- OUTSIDE RECORDS SUMMARY | 2024-12-11 14:52 | XMS_ITS | Clinical Summary ---
Author Organization [facility] Matiaslizzy ketan [facility] Address [address] [place] [address] Care Team Providers Care Patient Ombudsperson Name Role Phone Radha Soto Primary Care [...] Encounters Date Type Department Care Team Description 11/28/2024 External Device Data STL ABSTRACTION Provider, Abstract 11/23/2024 External Device Data STL ABSTRACTION Provider, Abstract 11/22/2024 External Device Data STL ABSTRACTION Provider, Abstract 11/21/2024 External Device Data STL ABSTRACTION Provider, Abstract 09/20/2024 External Device Data STL ABSTRACTION Provider, [...] on file Legal Sex Female 2:59 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 Gender Identity Not on file Sexual Orientation [...] 10:49 AM CDT Height 162.6 cm (5' 4) 08/31/2023 11:11 AM HEALTH SCIENCES DEPARTMENT CHAIR Body Mass Index 33.51 08/31/2023 11:11 AM HEALTH SCIENCES DEPARTMENT CHAIR Plan of Treatment Upcoming Encounters Date Type Department Care Team (Late st Contact Info) Description 03/19/2025 2:15 PM CDT Office Visit [facility] Oncology and Hematology - [place] [address] [place] [address] [facility] [address] [place] [address] Slick Alicea MD [address] [facility] [address] [place] [address] Health Maintenance Due Date Last Done Comments DTAP/TDAP/TD VACCINES (1 - Tdap) 11/05/1967 PNEUMOCOCCAL VACCINE 50+ YEA RS (1 of 1 - PCV) 1998 ZOSTER VACCINE (1 of 2) 1998 OSTEOPOROSIS SCREENING 04/13/2022 04/13/2017, 2016 RSV VACCINE (60+ or ) (1 - 1-dose 75+ series) 11/05/2023 INFLUENZA VACCINE (#1) 2024 Insurance MEDICARE PART A AND B [employer] PPO [id number] Care Teams Patient Ombudsperson Relationship Specialty Start Date End Date Radha Soto DO [address] [facility] [place] [id number] PCP - General Family Practice 01/10/24
== END 2024-12-11 13:40 | disposition home or self-care (01) ==
PROVIDERS: PCP Family Medicine; Visit Provider Nurse Practitioner
DX: M85.852 Other specified disorders of bone density and structure, left thigh (principal); Z78.0 Asymptomatic menopausal state
CPT/HCPCS: 77080

== ENCOUNTER 2025-03-09 10:35 | Outpatient (CLI) | payer MEDICARE, OTHER, SELFPAY ==
--- OUTSIDE RECORDS SUMMARY | 2025-03-09 10:46 | XMS_ITS | Clinical Summary ---
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 Gender Identity Not on file Sexual Orientation [...] 162.6 cm (5' 4) 08/31/2023 11:11 AM VETERINARY TOXICOLOGIST Body Mass Index 33.51 08/31/2023 11:11 AM VETERINARY TOXICOLOGIST Plan of Treatment Upcoming Encounters Date Type Department Care Team (Late st Contact Info) Description 03/19/2025 2:15 PM CDT Office Visit [facility] Oncology and Hematology - [place] [address] [facility] [address] [place] [address] Slick Alicea MD [address] [facility] [address] [place] [address] Health Maintenance Due Date Last Done Comments DTAP/TDAP/TD VACCINES (1 - Tdap) 11/05/1967 Traditional Medicare (ACO) A nnual Wellness Visit 11/05/1967 PNEUMOCOCCAL VACCINE 50+ YEA RS (1 of 1 - PCV) 1998 ZOSTER VACCINE (1 of 2) 1998 RSV VACCINE (60+ or ) (1 - 1-dose 75+ series) 11/05/2023 INFLUENZA VACCINE (#1) 2025 OSTEOPOROSIS SCREENING 12/11/2029 5, 04/16/2022, 04/13/2017, Additional history exists COLORECTAL SCREENING Discontinued 12/06/2018, 12/07/19 19 Colorectal Cancer Screening Discontinued FIT-DNA Q 3 years Discontinued FIT/FOBT Q 1 year Discontinued Flex Sig/CT Colonography Q 5 years Discontinued Insurance [facility]IC[facility] [id number] Care Teams Instructor Traffic Safety Relationship Specialty Start Date End Date Radha Soto DO [address] [facility] [place] [address] PCP - General Family Practice 01/10/24
--- OUTSIDE RECORDS SUMMARY | 2025-03-09 10:46 | XMS_ITS | Clinical Summary ---
Author Organization [facility] Address [address] [place] [address] Care Team Providers Care Systems Software Manager Name Role Phone Radha Soto Primary Care Provider + Jesse Longoria MD Unavailable [phone] Allergies Active Allergy Reactions Criticality Noted [...] D3 ORAL Take 50 mg by mouth senior web designer before breakfast Active ascorbic acid (vitamin C) 1,000 mg tablet Take 1 tablet (1,000 mg total) by mouth daily Active vitamin B complex capsule Take 1 capsule by mouth daily Active Active Problems No known active problems Surgical History Surgery Date Site/Laterality Comments COLONOSCOPY Medical History Medical History Date Comments Ulcerative colitis Internal hemorrhoids Hypercholesterolemia Social History Tobacco Use Types Packs/Day Years Used Date Smoking Tobacco: Former Smokeless Tobacco: Never Tobacco Cessation:Counseling Given: Yes Personal Safety Answer Date Recorded Getting School Help Needed Not on file 09/08 Comments No Sex and Gender Information Value Date Recorded Sex Assigned at Not on file Legal Sex Female 9:24 PM 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 Gender Identity Not on file Sexual Orientation Not on file Obstetrics History Last Filed Vital Signs Vital Sign Reading Time Taken Comments Blood Pressure 140/70 09/09/2023 1:27 PM 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 Pulse 85 09/09/2023 1:27 PM 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 Temperature 36.9 C (98.4 F) 09/09/2023 1:27 PM 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 Respiratory Rate 24 09/09/2023 1:27 PM 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 Oxygen Saturation 95% 09/09/2023 1:27 PM 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 Inhaled Oxygen Concentration - - Weight 90.7 kg (200 lb) 09/09/2023 1:27 PM 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 Height 162.6 cm (5' 4) 09/09/2023 1:27 PM 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 Body Mass Index 34.33 09/09/2023 1:27 PM 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 Plan of Treatment Health Maintenance Due Date Last Done Comments Depression Screening 1950 Fall Risk Assessment 1950 Hepatitis C Screening 1950 DTaP/Tdap/Td Vaccine (1 - Tdap) 11/05/1959 Hepatitis B Screening 1966 Well Visit 65+ 2013 Osteoporosis Screening-Bone Density Scan 04/13/2019 04/13/2017 Covid-19 Vaccine (3 - 2024-2 6 season) 2025 09/13/2020, 08/23/2020 Influenza Vaccine (#1) 2025 , 03/05/2022, 03/28/2021, Additional history exists Pneumococcal [...] PM CDT DEXA Bone Density Axial Acc#: [id number] DATE OF EXAM: Apr 13 2017 EXAM: [...] JOSE ANTONIO LERMA Requesting Attending Attending ID: [id number] Requesting ID: [id number] Report To 1 ID: [id number] Report To 1 Name: JOSE ANTONIO LERMA Report To 1 FAX: [phone] NextGen Order #: Procedure Note Miscellaneous, Not In File / Provider, MD Chasity - 04/13/2017 DEXA Bone Density Axial Acc#: [id number] DATE OF EXAM: Apr 13 2017 EXAM: [...] on: Apr 13 2017 12:26P Transcribed by: [facility] On: Apr 13 2017 12:24P Approved Electronically by: MYRNA Ortiz, DR LAINEZ on: Apr 13 2017 12:24P Ordering DR: JOSE ANTONIO LERMA Attending DR: JOSE ANTONIO LERMA Attending: JOSE ANTONIO LERMA Requesting: JOSE ANTONIO LERMA Requesting Attending Attending ID: [id number] Requesting ID: [id number] Report To 1 ID: [id number] Report To 1 Name: JOSE ANTONIO LERMA Report To 1 FAX: [phone] NextGen Order #: [facility] Jose Lerma [place] [facility] [place] PROCEDURES Final Result from Last 3 Months or Most Recently Relevant to Health Maintenance Insurance MEDICARE [employer] OPEN ACCESS MEDICARE [employer] OPEN ACCESS MEDICARE [facility] SUPPLEMENT MEDICARE Care Teams Systems Software Manager Relationship Specialty Start Date End Date Radha Soto DO [facility] [facility] [place] [address] PCP - General Family Medicine 09/09/23 Jesse Longoria MD [address] [place] [address] Referring Physician Orthopedic Surgery 09/09/23
[2025-03-09 10:54] LABS: Hematocrit 42.8 % (37.0-47.0); Hemoglobin 13.8 g/dL (12.0-15.0); Mean Corpuscular HGB Conc 32.2 g/dl (32-36); Mean Corpuscular Hemoglobin 30.2 pg (26-34); Mean Corpuscular Volume 93.7 fl (80-100); Platelet Count Result 409 k/mm3 (150-375); Red Blood Count 4.57 M/mm3 (4.2-5.4); White Blood Count 10.7 K/mm3 (4.5-10.0)
[2025-03-09 14:07] LABS: Iron 66 ug/dL (37-170)
[2025-03-09 14:10] LABS: Anion Gap 8 mmol/L (4-12); Blood Urea Nitrogen 18 mg/dL (7-17); Calcium 9.9 mg/dL (8.4-10.2); Carbon Dioxide 28 mmol/L (22-30); Chloride 98 mmol/L (98-107); Estimated Glomerular Filt Rate > 60; Glucose 99 mg/dL (65-110); Potassium 4.4 mmol/L (3.4-5.0); Sodium 134 mmol/L (137-145)
[2025-03-09 14:17] LABS: Percent Iron Saturation 19 % (20-50)
[2025-03-09 14:49] LABS: Ferritin 66.90 ng/mL (11.1-264)
== END 2025-03-09 10:36 | disposition home or self-care (01) ==
PROVIDERS: PCP Family Medicine; Visit Provider Internal Medicine Hematology & Oncology
DX: D50.9 Iron deficiency anemia, unspecified (principal)
CPT/HCPCS: 36415; 80048; 82728; 83540; 83550; 85027